=== PATIENT | female | born 1985 | race Caucasian/White ===

== ENCOUNTER → 2021-05-30 | Outpatient (CLI) | payer MEDICAID ==
[~2021-05-30] VITALS: Ht 157.5 cm; Wt 60.0 kg
[~2021-05-30] MED LIST: LIDOCAINE 1% INJ 20 ML 20 ML VIAL INJ ONE
--- NOTE | 2021-05-30 16:43 | Diagnostic Imaging Report ---
INDICATION: Thyroid mass. Patient presents for ultrasound guided fine needle aspiration and biopsy. The patient was brought to the procedure room, placed on the table in the supine position. Ultrasound imaging of the neck was performed to evaluate appropriate entry site. The patient does have a complex primarily cystic mass in the left aspect of the isthmus extending into the left lobe containing internal septations. The midline neck was then prepped and draped in the usual sterile fashion. A small amount of 1% lidocaine was utilized for local anesthesia. Multiple passes were made into the mixed solid and cystic mass with 25-gauge needles. Approximately 2 mL of brownish fluid was aspirated from the cystic spaces of the lesion. Next, 3 passes were made into the more solid components along the margins of the lesion and fine-needle aspiration technique was utilized. A single pass was made with a Rotex needle and a Rotex biopsy was performed. Hemostasis was obtained using manual compression. The patient tolerated the procedure well and left the department in stable condition. IMPRESSION: Successful ultrasound-guided fine-needle aspiration and Rotex biopsy of the mixed solid and cystic mass in the isthmus and left lobe of the thyroid. Pathology results are currently pending. Dictated by: Dictated on workstation # [id number]
== END ==
LOC: RAD 14:00
PROVIDERS: ATTEND Otolaryngology Otolaryngology/Facial Plastic Surgery
DX: E04.1 Nontoxic single thyroid nodule (principal)
CPT/HCPCS: 10005